=== PATIENT | male | born 1990 | race Caucasian/White ===

== ENCOUNTER 2021-09-24 17:20 | Observation (INO) | payer OTHER ==
[2021-09-24] MEDS ORDERED: ASPIRIN 81 MG PO STA (17:57)
--- NOTE | 2021-09-24 18:03 | ED ---
Chest Pain HPI - General Chief Complaint: Chest Pain Stated Complaint: Chest Pain and Pressure, Palpitations Time Seen by Provider: 09/24/21 17:49 Source: patient Mode of arrival: ambulatory Limitations: no limitations - History of Present Illness Initial Comments: This 31-year-old male presents with a complaint of some chest pain. He states that he has had this intermittently for the last 1 year. It is sometimes worse when he takes a deep breath. He states that it is sometimes worse when he is lifting heavy objects at work. He has not had it checked out in the last 1 year. He denies any shortness of breath. There is no leg pain or swelling. He denies any history of previous known cardiac disease. He also denies any history of DVT or PE. He states that it feels like a heaviness at times on his chest. He complains of occasional palpitations as well as. He does relate that he has a family history of cardiac disease but is unsure of the details. No other complaints or modifying factors. The patient does present from the rehab facility. He states that he previously was on methadone and stopped taking this and bridged himself with heroin and Xanax. He just got into the rehab program today for rehabilitation off of Xanax and heroin. The facility recommended that he come to the ER for further evaluation of his year long chest pain. - Related Data Previous Rx's Medication Instructions Recorded Cyclobenzaprine [Flexeril] 10 mg PO TID #20 tab 01/31/15 Ibuprofen [Motrin] 800 mg PO Q6HR PRN #20 tab 01/31/15 Allergies Allergy/AdvReac Type Severity Reaction Status Date / Time No Known Allergies Allergy Verified 09/24/21 17:25 Review of Systems ROS Statement: Those systems with pertinent positive or pertinent negative responses have been documented in the HPI. ROS Other: All systems not noted in ROS Statement are negative. Past Medical History Past Medical History: No Reported History History of Any Multi-Drug Resistant Organisms: None Reported Past Surgical History: Tonsillectomy Past Psychological History: Anxiety Smoking Status: Current every day smoker Past Alcohol Use History: None Reported Past Drug Use History: Heroin, Opiates, Prescription Drug Abuse General Exam - General Exam Comments Initial Comments: GENERAL: The patient is well nourished and well hydrated. VITAL SIGNS: Heart rate, blood pressure, respiratory rate reviewed as recorded in nurse's notes. EYES: Pupils are round and reactive. Extraocular movements are intact. No conjunctival / lid redness or swelling. ENT: No external evidence of injury, swelling, or ecchymosis. Airway is patent. Throat is clear. NECK: Nontender. No swelling or evidence of injury. No subcutaneous emphysema. Trachea is midline. No thyroid mass. HEART: Regular rate and rhythm. Good peripheral pulses. LUNGS/CHEST: Breath sounds clear and equal bilaterally. No rales, rhonchi, or wheezes. No ecchymosis, subcutaneous emphysema, or tenderness. ABDOMEN: Abdomen soft without tenderness. No palpable masses or organomegaly. No peritoneal signs. No abdominal wall swelling or ecchymosis. EXTREMITIES: No extremity tenderness. Normal muscle tone and function. No thoracolumbar tenderness. NEUROLOGIC: Sensation is grossly intact. Cranial nerve exam reveals face is symmetrical, tongue is midline, speech is clear. SKIN: No abrasions or ecchymosis is noted. No induration or masses noted. PSYCHIATRIC: Alert and oriented. Appropriate behavior and judgment. 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 All diagnostics are reviewed. The EKG shows a normal sinus rhythm at a rate of 62. There may be some slight diffuse ST elevation likely related to early repolarization. The NJ intervals 129, QRS duration is 93, and the QTc interval is 398. He is given aspirin. The laboratory came back essentially within normal limits except for his troponin is slightly elevated. The possibility of a non-ST elevation myocardial infarction is possible. He is started on aspirin as well as Nitropaste. Chest x-ray does not show any acute process. Patient is not having any chest pain noted on recheck. Repeat EKG is ordered. It is felt as though the patient would require admission to the hospital for further evaluation and treatment. He is agreeable with this plan. Case is discussed with advanced practice provider for [facility] [place] [facility] and they're agreeable with admission. Repeat EKG came back showing sinus bradycardia at a rate of 58. There is mild diffuse ST elevation without reciprocal changes likely secondary to early repolarization. The NJ intervals 137, QRS duration is 90, and the QTC intervals 409. Disposition Clinical Impression: Chest pain, Heroin abuse, Xanax use disorder, moderate, Elevated troponin, NSTEMI (non-ST elevated myocardial infarction) Disposition: ADMITTED IP TO THIS HOSP Condition: Fair Is patient prescribed a controlled substance at d/c from ED?: No Referrals: None,Stated [Primary Care Provider] - 1-2 days Time of Disposition: 19:32 Decision Date: 09/24/21 Decision Time: 19:32
[2021-09-24 18:28] LABS: Basophils # (A) 0.1 k/uL (0-0.2); Basophils % (A) 1 %; Eosinophils # (A) 0.4 k/uL (0-0.7); Eosinophils % (A) 3 %; HCT 43.6 % (39.0-53.0); HGB 13.8 gm/dL (13.0-17.5); Lymphocytes # (A) 2.6 k/uL (1.0-4.8); Lymphocytes % (A) 23 %; MCH 27.7 pg (25.0-35.0); MCHC 31.6 g/dL (31.0-37.0); MCV 87.5 fL (80.0-100.0); Monocytes # (A) 0.7 k/uL (0-1.0); Monocytes % (A) 6 %; Neutrophils # (A) 7.5 k/uL (1.3-7.7); Neutrophils % (A) 65 %; Platelet Count 327 k/uL (150-450); RBC 4.98 m/uL (4.30-5.90); RDW 12.8 % (11.5-15.5); WBC 11.5 k/uL (3.8-10.6)
[2021-09-24 18:35] LABS: ALT 23 U/L (4-49); AST 32 U/L (17-59); African American GFR (CKD) >90 (>60 ml/min/1.73 sqM); Albumin 3.7 g/dL (3.5-5.0); Alkaline Phosphatase 58 U/L (38-126); Anion Gap 8 mmol/L; Blood Urea Nitrogen 9 mg/dL (9-20); Calcium 8.5 mg/dL (8.4-10.2); Carbon Dioxide 27 mmol/L (22-30); Chloride 104 mmol/L (98-107); Glucose 84 mg/dL (74-99); Magnesium 2.1 mg/dL (1.6-2.3); Non-African American GFR(CKD) >90 (>60 ml/min/1.73 sqM); Potassium 4.1 mmol/L (3.5-5.1); Sodium 139 mmol/L (137-145); Total Bilirubin 0.5 mg/dL (0.2-1.3); Total Protein 6.5 g/dL (6.3-8.2)
--- NOTE | 2021-09-24 19:20 | XR ---
EXAMINATION TYPE: XR chest 2V DATE OF EXAM: 09/24/2021 6:47 PM COMPARISON: None TECHNIQUE: XR chest 2V Frontal and lateral views of the chest. CLINICAL INDICATION:Male, 31 years old with history of Chest Pain; FINDINGS: Lungs/Pleura: There is no evidence of pleural effusion, focal consolidation, or pneumothorax. Pulmonary vascularity: Unremarkable. Heart/mediastinum: Cardiomediastinal silhouette is unremarkable. Musculoskeletal: No acute osseous pathology. IMPRESSION: No acute cardiopulmonary disease/process.
[2021-09-24] MEDS ORDERED: NITROGLYCERIN OINT 1 INCH/GM PACKET TOPICAL STA (19:34)
[2021-09-24] MEDS ORDERED: NITROGLYCERIN SL TABS 0.4 MG TAB SUBLINGUAL PRN (19:37)
[2021-09-24] MEDS ORDERED: ACETAMINOPHEN TAB 325 MG TAB PO PRN (19:37)
[2021-09-24] MEDS ORDERED: ENOXAPARIN 40 MG/0.4 ML SYRINGE SQ SCH (20:00)
[2021-09-24] MEDS: HEPARIN SOD,PORK IN 0.45% NACL 25,000 UNIT in 0.45% NACL 1 250ML.BAG IV SCH (22:58)
[2021-09-24] MEDS: NITROGLYCERIN OINT 1 INCH/GM PACKET TOPICAL SCH (23:07)
[2021-09-24] MEDS: NICOTINE 21MG/24HR PATCH TRANSDERM SCH (23:35)
[2021-09-25 00:43] LABS: Amphetamine Screen,Urine Not Detected (NotDetected); Barbiturate Screen,Urine Not Detected (NotDetected); Benzodiazepines Screen,Urine Detected (NotDetected); Cocaine Screen,Urine Not Detected (NotDetected); Methadone Screen, Urine Not Detected (NotDetected); Opiate Screen,Urine Detected (NotDetected); Oxycodone Screen, Urine Not Detected (NotDetected); Phencyclidine Screen,Urine Not Detected (NotDetected); Tricyclic Antidepressant,Urine Not Detected (NotDetected); Urn Cannabinoid Scrn Detected (NotDetected)
[2021-09-25 01:06] LABS: Partial Thromboplastin Time 43.8 sec (22.0-30.0); Prothrombin Time 10.5 sec (9.0-12.0)
[2021-09-25] MEDS: NITROGLYCERIN OINT 1 INCH/GM PACKET TOPICAL SCH (05:58)
[2021-09-25] MEDS ORDERED: ONDANSETRON 4 MG/2 ML VIAL IVP PRN (08:31)
[2021-09-25] MEDS ORDERED: ASPIRIN 325 MG TAB PO SCH (09:00)
[2021-09-25] MEDS: CLOPIDOGREL 75 MG TAB PO SCH (09:02)
[2021-09-25] MEDS: METOPROLOL TARTRATE 12.5 MG TAB PO SCH ×2 (09:02→21:02)
[2021-09-25] MEDS: ASPIRIN 81 MG PO SCH (09:02)
[2021-09-25 09:42] LABS: HDL Cholesterol 38.1 mg/dL (40.00-60.00); Triglycerides 49.3 mg/dL (0.00-149.00)
[2021-09-25 09:56] LABS: Chol/HDL Ratio 2.32 Ratio; LDL Cholesterol,Direct Reflex 40.7 mg/dL (0.00-129.00)
[2021-09-25 11:06] VITALS: BMI 21.4
--- NOTE | 2021-09-25 11:41 | P.CRDCN ---
History of Present Illness History of present illness: HISTORY OF PRESENTING ILLNESS This is a pleasant 31-year-old male past medical history significant for polysubstance abuse with IV heroin, marijuana, persistent drug use, opiates, chronic nicotine dependence. 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 We have been asked to see in consultation for chest pain. Patient presents to the emergency department from [place] after telling staff that he had chest pain. He states that he was previously on methadone stopped taking this and was using IV heroin and Xanax. He states he got into a rehab program for his substance abuse. He states he been having intermittent chest pressure, describes it as someone sitting on his chest. Also occasionally sharp. It is nonradiating. It comes and goes. He states when he stopped using IV heroin his chest pain returned. No specific aggravating factors. He also was nausea, diaphoretic. He currently smokes 1PPD, denies alcohol use. He denies history of CAD, AL, stroke, diabetes, hypertension. Family history includes his sister of congestive heart failure at the age of 13, his mother of an AL in her 50s, mother also with history of illicit drug abuse. DIAGNOSTICS EKG reveals sinus bradycardia, heart rate 58, early repolarization in inferior and anterior lateral leads. No acute ischemia noted. No prior EKG to compare. Telemetry tracings indicate sinus mechanism Chest xray no acute cardiopulmonary process. Laboratory reviewed, troponin 0.45, 0.29, 0.21, WBC 11.5, hemoglobin 13.8, platelets 327, d-dimer negative, sodium 139, potassium 4.1, BUN 9, serum crit 2 .5, urine tox positive for opiates, benzodiazepines, marijuana Current home medications include none REVIEW OF SYSTEMS At the time of my exam: CONSTITUTIONAL: Denies fever or chills. CARDIOVASCULAR: + chest pain, Denies shortness of breath, orthopnea, PND or palpitations. RESPIRATORY: Denies cough. GASTROINTESTINAL: Denies abdominal pain, diarrhea, constipation, nausea or vomiting. MUSCULOSKELETAL: Denies myalgias. NEUROLOGIC: Denies numbness, tingling, headache or weakness. ENDOCRINE: Denies fatigue, weight change, polydipsia or polyurina. GENITOURINARY: Denies burning, hematuria or urgency with micturation. HEMATOLOGIC: Denies history of anemia or bleeding. PHYSICAL EXAMINATION Blood pressure 111/64, heart rate 72, afebrile, oxygen saturation is 96% on room air CONSTITUTIONAL: No apparent distress. HEENT: Head is normocephalic. Pupils are equal, round. Sclerae anicteric. Mucous membranes of the mouth are moist. No JVD. No carotid bruit. CHEST EXAMINATION: Lungs are clear to auscultation. No chest wall tenderness is noted on palpation or with deep breathing. HEART EXAMINATION: Regular rate and rhythm. S1, S2 heard. No murmurs, gallops or rub. ABDOMEN: Soft, nontender. Positive bowel sounds. EXTREMITIES: 2+ peripheral pulses, no lower extremity edema and no calf tenderness. SKIN: moist, warm NEUROLOGIC EXAMINATION: Patient is awake, alert and oriented x3. ASSESSMENT Chest pain and elevated troponin concerning for NSTEMI Polysubstance abuse with IV heroin, prescription drug abuse, opiates Chronic nicotine dependence PLAN We recommend cardiac catheterization at this time, patient has refused. We have discussed the risks, benefits and alternative therapies for the cardiac catheterization. Patient has refused Obtain 2D echocardiogram and doppler study to assess cardiac structure and function. Check lipid panel Due to patient's refusal we will treat medically with IV heparin, aspirin, Plavix, Nitro and metoprolol tartrate Smoking cessation discussed and highly recommended. Further recommendations based on clinical course Thank you kindly for this consultation. Nurse practitioner note has been reviewed by physician. Signing provider agrees with the documented findings, assessment, and plan of care. Past Medical History Past Medical History: No Reported History History of Any Multi-Drug Resistant Organisms: None Reported Past Surgical History: Tonsillectomy Past Anesthesia/Blood Transfusion Reactions: No Reported Reaction Past Psychological History: Anxiety Smoking Status: Current every day smoker Past Alcohol Use History: None Reported Past Drug Use History: Heroin, Marijuana, Opiates, Prescription Drug Abuse Additional Drug Use History / Comment(s): PT USES IV HEROIN AND TAKES METHADONE. - Past Family History Mother Family Medical History: Myocardial Infarction (AL) Sister(s) Family Medical History: Congestive Heart Failure (CHF) Medications and Allergies Home Medications Medication Instructions Recorded Confirmed Type No Known Home Medications 09/24/21 09/24/21 History Allergies Allergy/AdvReac Type Severity Reaction Status Date / Time No Known Allergies Allergy Verified 09/24/21 20:20 Physical Exam Vitals: Vital Signs Temp Pulse Pulse Resp BP BP Pulse Ox 09/25/21 04:00 98.0 F 71 18 99/54 96 09/25/21 02:00 72 17 09/25/21 00:00 98.6 F 72 17 111/64 97 09/24/21 20:00 60 16 104/70 99 09/24/21 19:27 98.4 F 61 18 114/86 100 09/24/21 18:12 62 18 121/67 100 09/24/21 17:55 64 09/24/21 17:22 98 F 70 20 115/80 100 Intake and Output 09/24/21 09/25/21 09/25/21 22:59 06:59 14:59 Intake Total 64 Output Total 0 300 Balance 0 -236 Intake: Intake, IV Titration 64 Amount Heparin Sod,Pork in 0.45% 64 NaCl 25,000 unit In 0.45 % NaCl 1 250ml.bag @ 12 UNITS/KG/HR 8.382 mls/hr IV .Q24H [facility] Rx#: [id number] Output: Urine 0 300 Other: # Voids 0 1 Weight 69.853 kg Results 09/24/21 18:09 09/24/21 18:09 Cardiac Enzymes 09/24/21 09/24/21 09/24/21 Range/Units 18:09 18:09 22:00 AST 32 (17-59) U/L Troponin I 0.451 H* 0.294 H* (0.000-0.034) ng/mL 09/25/21 Range/Units 00:17 AST (17-59) U/L Troponin I 0.211 H* (0.000-0.034) ng/mL Coagulation 09/25/21 09/25/21 Range/Units 00:17 06:20 PT 10.5 (9.0-12.0) sec APTT 43.8 H 39.1 H (22.0-30.0) sec CBC 09/24/21 Range/Units 18:09 WBC 11.5 H (3.8-10.6) k/uL RBC 4.98 (4.30-5.90) m/uL Hgb 13.8 (13.0-17.5) gm/dL Hct 43.6 (39.0-53.0) % Plt Count 327 (150-450) k/uL Comprehensive Metabolic Panel 05/03/22 Range/Units 18:09 Sodium 139 (137-145) mmol/L Potassium 4.1 (3.5-5.1) mmol/L Chloride 104 (98-107) mmol/L Carbon Dioxide 27 (22-30) mmol/L BUN 9 (9-20) mg/dL Creatinine 0.54 L (0.66-1.25) mg/dL Glucose 84 (74-99) mg/dL Calcium 8.5 (8.4-10.2) mg/dL AST 32 (17-59) U/L ALT 23 (4-49) U/L Alkaline Phosphatase 58 (38-126) U/L Total Protein 6.5 (6.3-8.2) g/dL Albumin 3.7 (3.5-5.0) g/dL Current Medications Generic Name Dose Route Start Last Admin Trade Name Freq PRN Reason Stop Dose Admin Acetaminophen 650 mg 09/24/21 19:37 09/25/21 05:56 Acetaminophen Tab 325 Mg Tab PO 650 mg Q4HR PRN Administration Pain Aspirin 325 mg 09/25/21 09:00 Aspirin 325 Mg Tab PO DAILY WENDI Heparin Sodium/Sodium Chloride 250 mls @ 8.382 mls/hr 09/24/21 22:00 09/24/21 22:58 25,000 unit/ Sodium Chloride IV 12 units/kg/hr .Q24H WENDI 8.382 mls/hr Administration Protocol 12 UNITS/KG/HR Nicotine 1 patch 09/24/21 23:30 09/24/21 23:35 Nicotine 21mg/24hr Patch TRANSDERM 1 patch DAILY WENDI Administration Nitroglycerin 0.4 mg 09/24/21 19:37 Nitroglycerin Sl Tabs 0.4 Mg Tab SUBLINGUAL Q5M PRN Chest Pain Nitroglycerin 1 inch 09/25/21 00:00 09/25/21 05:58 Nitroglycerin Oint 1 Inch/Gm Packet TOPICAL Not Given Q6HR WENDI Intake and Output 09/24/21 09/25/21 09/25/21 22:59 06:59 14:59 Intake Total 64 Output Total 0 300 Balance 0 -236 Intake: Intake, IV Titration 64 Amount Heparin Sod,Pork in 0.45% 64 NaCl 25,000 unit In 0.45 % NaCl 1 250ml.bag @ 12 UNITS/KG/HR 8.382 mls/hr IV .Q24H [facility] Rx#: [id number] Output: Urine 0 300 Other: # Voids 0 1 Weight 69.853 kg 09/24/21 18:09 09/24/21 18:09
--- NOTE | 2021-09-25 11:43 | CA ---
Transthoracic Echo Report Name: Raymon Epstein Age: 31 Gender: M : 1990 Exam Date: 09/25/2021 09:03 Exam Location: [place] [facility] Ht (in): 71 Wt (lb): 154 Ordering Physician: Vasile Justice DO Attending/Referring Phys: [id number], Reshma Patient Flow Coordinator Chela Lazo, [facility] Procedure CPT: Indications: CP Cardiac Hx: Technical Quality: Fair Contrast 1: Total Dose (mL): Contrast 2: Total Dose (mL): MEASUREMENTS (Male / Female) Normal Values 2D ECHO LV Diastolic Diameter PLAX 5.2 cm 4.2 - 5.9 / 3.9 - 5.3 cm LV Systolic Diameter PLAX 3.4 cm IVS Diastolic Thickness 1.2 cm 0.6 - 1.0 / 0.6 - 0.9 cm LVPW Diastolic Thickness 0.9 cm 0.6 - 1.0 / 0.6 - 0.9 cm LV Relative Wall Thickness 0.4 RV Internal Dim ED PLAX 3.8 cm LA Volume 83.8 cm??? 18 - 58 / 22 - 52 cm??? M-MODE Aortic Root Diameter MM 3.2 cm LA Systolic Diameter MM 3.7 cm LA Ao Ratio MM 1.2 AV Cusp Separation MM 2.3 cm DOPPLER AV Peak Velocity 106.5 cm/s AV Peak Gradient 4.5 mmHg LVOT Peak Velocity 103.6 cm/s LVOT Peak Gradient 4.3 mmHg MV Area PHT 2.6 cm??? Mitral E Point Velocity 88.2 cm/s Mitral A Point Velocity 69.9 cm/s Mitral E to A Ratio 1.3 MV Deceleration Time 297.4 ms TR Peak Velocity 248.2 cm/s TR Peak Gradient 24.6 mmHg Right Ventricular Systolic Press 29.6 mmHg FINDINGS Left Ventricle Normal left ventricular systolic function with no obvious regional wall motion abnormalities. Normal left ventricular diastolic filling pattern. Left ventricular cavity size normal. Mildly increased left ventricular wall thickness. Left ventricular ejection fraction is estimated at 55-60 %. Right Ventricle Mild right ventricular dilatation. Right ventricular systolic pressure within normal limits. Right Atrium Mild right atrial dilatation. Left Atrium Moderate left atrial dilatation. Mitral Valve Structurally normal mitral valve. No mitral stenosis, regurgitation or prolapse. Mild mitral regurgitation. Aortic Valve Trileaflet aortic valve. No aortic valve stenosis or regurgitation. Tricuspid Valve Structurally normal tricuspid valve. No evidence of pulmonary hypertension. Pulmonic Valve Structurally normal pulmonic valve. No pulmonic regurgitation. Pericardium No pericardial effusion. Aorta Aortic root and proximal ascending aorta not well visualized. CONCLUSIONS Preserved LV systolic function Left ventricular hypertrophy Previewed by: Dr. Masood Abreu MD (Electronically Signed) Final Date: 25 Sep 2021 11:42
[2021-09-25] MEDS ORDERED: hydrOXYzine pamoate 25 MG CAP PO PRN (11:58)
[2021-09-25] MEDS ORDERED: LOPERAMIDE 2 MG CAP PO PRN (12:00)
[2021-09-25] MEDS ORDERED: PROCHLORPERAZINE 5 MG TAB PO PRN (12:00)
--- NOTE | 2021-09-25 12:43 | P.HPIM ---
History of Present Illness This is a pleasant 51 years old male with past medical history of,Anxiety, Current every day smokerdrug abuse including Heroin, Marijuana, Opiates, Prescription Drug Abuse Patient states that is been using methadone 180 mg daily for 6 years where he follows up with [facility]. Over last month he wanted to taper down his methadone and when he was going down with the dose in 2030-40 mg he will develop withdrawal symptoms so anesthetic he was started using injectable heroin twice a day before going to work. And at evening. Also has been using 4 mg at night to help him sleep. The last dose was 2 days ago. Patient states he went to [place] just because he got tired of being on medication and he wants to undergo detox. There he was complaining of from chest pain which he was referred for to the emergency room. Patient is been complaining for this chest pain on and off for 1 year. This chest pain was getting more severe lately over the last 2 months when he has several deaths in his family bring him stress to him so he started using more medication and he was having worsening chest pain following that. His chest pain mainly on the left lower side of his chest anteriorly, nonradiating, about 5/10 on admission and currently 3/10. [place] like pressure and sometimes sharp with coughing and deep breath. However patient denies any chest pain or dyspnea. No diarrhea or vomiting or urinary complaints. However his been vomited once today because from his withdrawal symptoms. Currently he is been having few withdrawal symptoms although his calm Not anxious not agitated but he's feeling cold and hot flashes, generalized body ache, restless leg especially at night and nausea patient denies suicidal, homicidal ideation. He denies hallucination he smokes cigars as well Vitals are stable. Labs showed mild leukocytosis of 11.5. Rest of CBC, BMP, liver enzymes are unremarkable. Troponin is elevated 0.4 and 0.2 EKG showing normal sinus rhythm at [address] on V4 to V6. No other significant ST-T changes. QTC 398. Chest x-ray: No acute process. in emergency room patient received aspirin, nitroglycerin and heparin drip. MAPS was checked and no results were found Review of Systems Review of systems CONSTITUTIONAL: No fever, no malaise, no fatigue. HEENT: No recent visual problems or hearing problems. Denied any sore throat. CARDIOVASCULAR: No orthopnea, PND, no palpitations, no syncope. PULMONARY: No shortness of breath, no cough, no hemoptysis. GASTROINTESTINAL: No diarrhea, no nausea, no vomiting, no abdominal pain. Normoactive bowel sounds. NEUROLOGICAL: No headaches, no weakness, no numbness. HEMATOLOGICAL: Denies any bleeding or petechiae. GENITOURINARY: Denies any burning micturition, frequency, or urgency. MUSCULOSKELETAL/RHEUMATOLOGICAL: Denies any joint pain, swelling, or any muscle pain. ENDOCRINE: Denies any polyuria or polydipsia. Past Medical History Past Medical History: No Reported History History of Any Multi-Drug Resistant Organisms: None Reported Past Surgical History: Tonsillectomy Past Anesthesia/Blood Transfusion Reactions: No Reported Reaction Past Psychological History: Anxiety Smoking Status: Current every day smoker Past Alcohol Use History: None Reported Past Drug Use History: Heroin, Marijuana, Opiates, Prescription Drug Abuse Additional Drug Use History / Comment(s): PT USES IV HEROIN AND TAKES METHADONE. - Past Family History Mother Family Medical History: Myocardial Infarction ([place]) Sister(s) Family Medical History: Congestive Heart Failure (CHF) Medications and Allergies Home Medications Medication Instructions Recorded Confirmed Type No Known Home Medications 09/24/21 09/24/21 History Allergies Allergy/AdvReac Type Severity Reaction Status Date / Time No Known Allergies Allergy Verified 09/24/21 20:20 Physical Exam Vitals: Vital Signs Temp Pulse Pulse Resp BP BP Pulse Ox 09/25/21 04:00 98.0 F 71 18 99/54 96 09/25/21 02:00 72 17 09/25/21 00:00 98.6 F 72 17 111/64 97 09/24/21 20:00 60 16 104/70 99 09/24/21 19:27 98.4 F 61 18 114/86 100 09/24/21 18:12 62 18 121/67 100 09/24/21 17:55 64 09/24/21 17:22 98 F 70 20 115/80 100 Intake and Output 09/24/21 09/25/21 09/25/21 22:59 06:59 14:59 Intake Total 64 Output Total 0 300 Balance 0 -236 Intake: Intake, IV Titration 64 Amount Heparin Sod,Pork in 0.45% 64 NaCl 25,000 unit In 0.45 % NaCl 1 250ml.bag @ 12 UNITS/KG/HR 8.382 mls/hr IV .Q24H [facility] Rx#: [id number] Output: Urine 0 300 Other: # Voids 0 1 Weight 69.853 kg GENERAL: The patient is alert and oriented x3, not in any acute distress. Well developed, well nourished. HEENT: Pupils are round and equally reacting to light. EOMI. No scleral icterus. No conjunctival pallor. Normocephalic, atraumatic. No pharyngeal erythema. No thyromegaly. CARDIOVASCULAR: S1 and S2 present. No murmurs, rubs, or gallops. PULMONARY: Chest is clear to auscultation, no wheezing or crackles. ABDOMEN: Soft, nontender, nondistended, normoactive bowel sounds. No palpable organomegaly. MUSCULOSKELETAL: No joint swelling or deformity. EXTREMITIES: No cyanosis, clubbing, or pedal edema. NEUROLOGICAL: Gross neurological examination did not reveal any focal deficits. SKIN: No rashes. no petechiae. Results CBC & Chem 7: 09/24/21 18:09 09/24/21 18:09 Labs: Abnormal Lab Results - Last 24 Hours (Table) 09/24/21 09/24/21 09/24/21 Range/Units 18:09 18:09 18:09 WBC 11.5 H (3.8-10.6) k/uL APTT (22.0-30.0) sec Creatinine 0.54 L (0.66-1.25) mg/dL Troponin I 0.451 H* (0.000-0.034) ng/mL Urine Opiates Screen (NotDetected) U Benzodiazepines Scrn (NotDetected) U Marijuana (THC) Screen (NotDetected) 09/24/21 09/25/21 09/25/21 Range/Units 22:00 00:07 00:17 WBC (3.8-10.6) k/uL APTT 43.8 H (22.0-30.0) sec Creatinine (0.66-1.25) mg/dL Troponin I 0.294 H* (0.000-0.034) ng/mL Urine Opiates Screen Detected H (NotDetected) U Benzodiazepines Scrn Detected H (NotDetected) U Marijuana (THC) Screen Detected H (NotDetected) 09/25/21 09/25/21 Range/Units 00:17 06:20 WBC (3.8-10.6) k/uL APTT 39.1 H (22.0-30.0) sec Creatinine (0.66-1.25) mg/dL Troponin I 0.211 H* (0.000-0.034) ng/mL Urine Opiates Screen (NotDetected) U Benzodiazepines Scrn (NotDetected) U Marijuana (THC) Screen (NotDetected) Thrombosis Risk Factor Assmnt - Choose All That Apply Any of the Below Risk Factors Present?: No Assessment and Plan Assessment: Chest pain, possible non-STEMI. Nonadherence recommended medical treatment Nicotine dependence Drug abuse including heroin, marijuana, opium, prescription drug, methadone. Plan: This is a pleasant 31 years old male who presents with chest pain with recent history of drug abuse. Continue with aspirin and heparin drip Check echocardiogram Cardiology consult, recommend medical treatment as patient has been refusing cardiac cath Start symptomatic treatment with hydroxyzine, all in all, Imodium and prochlorperazine, Requip. Psychiatric team consult Based upon my evaluation, patient has capacity to make medical decision Labs and medication were reviewed.. Continue same treatment. Continue with symptomatic treatment. Resume home medication. Monitor lytes and vitals. DVT and GI prophylaxis. Further recommendations as per clinical course of the patient DVT prophylaxis: heparin GI Prophylaxis: Pepcid Prognosis is guarded
[2021-09-25] MEDS ORDERED: diazePAM 5 MG TAB PO STA (14:09)
--- NOTE | 2021-09-25 14:42 | P.CN ---
Psychiatric Consult - . Consult date: 09/25/21 Consult:: 09/25/21 14:41 IDENTIFYING DATA: This patient is a single, 31-year-old male with a significant history of polysubstance abuse presenting to the hospital for chest pain. HISTORY OF PRESENT ILLNESS: The patient presented to the hospital on 09/24/2021, brought into the hospital with a complaint of chest pain. Reportedly, the patient has been having intermittent chest pain for the last year. He also has reported history of palpitations. The patient was planning to go to rehab at [facility] and was scheduled for an intake today however came to the hospital due to concerns for chest pain. Psychiatry has been consulted for evaluation of depression and polysubstance abuse. Upon evaluation on the medical floor, the patient is currently denying any significant symptoms of depression at this time. He is not reporting any suicidal or homicidal ideation, intention, and/or plan. He is denying any auditory or visual hallucinations. He reports no paranoia or other delusions. The patient states that he was supposed to go to rehab and continues to desire to go to rehab after this hospitalization. He reports that he would like to see psychiatrist after his rehab stay so that he may be put on medications to help with insomnia and with anxiety. The patient remains fixated on receiving benzodiazepine medications. In regards to substance abuse, the patient reports his use of different drugs including methadone, Xanax, and heroin. He reports that he last used methadone approximately 12 days ago, Xanax 4 days ago, and heroin IV approximately 26 hours ago. He is currently reporting that he is expressing withdrawal symptoms in the forms of nausea, generalized pain, elevated anxiety, yawning, and "stretchies." The patient is not reporting any significant symptoms of auditory or visual hallucinations. He denies any overt manic symptoms. PAST PSYCHIATRIC HISTORY: Patient has a history of anxiety and polysubstance abuse. The patient does report that he uses Xanax illicitly. Patient denies any previous psychiatric hospitalizations. Patient denies any psychiatric outpatient follow-up. Patient denies any history of suicide attempts in the past. PAST MEDICAL HISTORY: Past Medical History: No Reported History History of Any Multi-Drug Resistant Organisms: None Reported Past Surgical History: Tonsillectomy Past Anesthesia/Blood Transfusion Reactions: No Reported Reaction Past Psychological History: Anxiety Smoking Status: Current every day smoker Past Alcohol Use History: None Reported Past Drug Use History: Heroin, Marijuana, Opiates, Prescription Drug Abuse Additional Drug Use History / Comment(s): PT USES IV HEROIN AND TAKES METHADONE. ALLERGIES: NO KNOWN DRUG ALLERGIES CHEMICAL DEPENDENCY HISTORY: as per HPI. The patient has been abusing drugs since the age of 17. He reports that his mother and father abused opiates and he got started I taking some of their methadone. He reports of the longest period he has been sober was for 4 years but relapsed approximately one year ago after his grandfather . He states that he remained sober for his daughter. FAMILY PSYCHIATRIC/SUBSTANCE USE HISTORY: The patient reports that his mother and stepfather were opiate addicts. SOCIAL HISTORY: The patient is single, has a daughter. MENTAL STATUS EXAM: General Appearance: Patient appears to be stated age is alert, pleasant, and co operative. Patient appears to have fair hygiene and grooming wearing hospital gown with fair eye contact. Multiple tattoos. Behavior: Patient is calmly lying in bed without any agitated behavior. Speech: Patient's speech is fluent and nonpressured. Mood/Affect: Patient reports their mood is "okay, just in withdrawal", affect is euthymic with appropriate range. Suicidality/Homicidality: Patient denies any suicidal or homicidal ideation. Perceptions: Patient denies any visual hallucinations and denies any auditory hallucinations Though content/process: There is no evidence of any delusional thought content and thought process is linear and goal-directed. Memory and concentration: AOX3, grossly intact for the purposes of this session. Can spell "WORLD" backwards Judgment and insight: Fair IMPRESSIONS: Polysubstance abuse Prescription drug abuse Opiate use disorder Benzodiazepine use disorder PLAN: -At this time patient DOES NOT meet criteria for inpatient psychiatric admission. Patient is not presenting with imminent risk of harm to self or others. He'll remain at chronic elevated risk due to his substance abuse, in particular his opiate and his benzodiazepine abuse. The patient was counseled at great length that the combination of his drugs of choice would lead to respiratory depression and likely . He expresses a desire to live for himself and his daughter. He is future-oriented. -Would recommend the following medication changes/additions: No medication recommendations made at this time. -Agree with plan for the patient to go to inpatient substance abuse rehabilitation. -Psychiatry will sign off at this point, please contact with any questions. 09/25/21 14:41
[2021-09-25] MEDS: NICOTINE 21MG/24HR PATCH TRANSDERM SCH ×2 (14:58→15:26)
[2021-09-25] MEDS: SODIUM CHLORIDE 0.9% 1,000 ML IV SCH ×2 (15:26→21:02)
[2021-09-25] MEDS ORDERED: diazePAM 5 MG TAB PO PRN (18:39)
[2021-09-25] MEDS: cloNIDine HCL 0.1 MG TAB PO SCH (21:02)
[2021-09-25] MEDS: hydrOXYzine pamoate 25 MG CAP PO PRN (21:02)
[2021-09-25] MEDS: HEPARIN SOD,PORK IN 0.45% NACL 25,000 UNIT in 0.45% NACL 1 250ML.BAG IV SCH (21:03)
[2021-09-26] MEDS: hydrOXYzine pamoate 25 MG CAP PO PRN ×2 (03:31→08:37)
[2021-09-26] MEDS: SODIUM CHLORIDE 0.9% 1,000 ML IV SCH ×2 (03:32→12:40)
[2021-09-26 04:06] LABS: Basophils # (A) 0.1 k/uL (0-0.2); Basophils % (A) 1 %; Eosinophils # (A) 0.4 k/uL (0-0.7); Eosinophils % (A) 6 %; HCT 37.5 % (39.0-53.0); HGB 11.7 gm/dL (13.0-17.5); Lymphocytes # (A) 2.4 k/uL (1.0-4.8); Lymphocytes % (A) 37 %; MCH 27.6 pg (25.0-35.0); MCHC 31.3 g/dL (31.0-37.0); MCV 88.2 fL (80.0-100.0); Mean Platelet Volume 7.2; Monocytes # (A) 0.3 k/uL (0-1.0); Monocytes % (A) 5 %; Neutrophils # (A) 3.1 k/uL (1.3-7.7); Neutrophils % (A) 47 %; Platelet Count 264 k/uL (150-450); RBC 4.25 m/uL (4.30-5.90); RDW 12.9 % (11.5-15.5); WBC 6.5 k/uL (3.8-10.6)
[2021-09-26 04:27] LABS: African American GFR (CKD) >90 (>60 ml/min/1.73 sqM); Anion Gap 4 mmol/L; Blood Urea Nitrogen 7 mg/dL (9-20); Calcium 8.3 mg/dL (8.4-10.2); Carbon Dioxide 27 mmol/L (22-30); Chloride 109 mmol/L (98-107); Glucose 104 mg/dL (74-99); Non-African American GFR(CKD) >90 (>60 ml/min/1.73 sqM); Potassium 3.7 mmol/L (3.5-5.1); Sodium 140 mmol/L (137-145)
[2021-09-26] MEDS: ASPIRIN 81 MG PO SCH (08:37)
[2021-09-26] MEDS: cloNIDine HCL 0.1 MG TAB PO SCH (08:37)
[2021-09-26] MEDS: METOPROLOL TARTRATE 12.5 MG TAB PO SCH (08:37)
[2021-09-26] MEDS: CLOPIDOGREL 75 MG TAB PO SCH (08:37)
[2021-09-26 12:37] VITALS: RESP 16; TEMP 97.9
[2021-09-26 12:38] VITALS: BP 116/70; PULSE 62
[2021-09-26] MEDS: NICOTINE 21MG/24HR PATCH TRANSDERM SCH (12:40)
--- NOTE | 2021-09-26 12:40 | P.PN ---
Subjective This is a pleasant 31-year-old male past medical history significant for polysubstance abuse with IV heroin, marijuana, persistent drug use, opiates, chronic nicotine dependence. 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 We have been asked to see in consultation for chest pain. Patient presents to the emergency department from [facility] after telling staff that he had chest pain. He states that he was previously on methadone stopped taking this and was using IV heroin and Xanax. He states he got into a rehab program for his substance abuse. He states he been having intermittent chest pressure, describes it as someone sitting on his chest. Also occasionally sharp. It is nonradiating. It comes and goes. He states when he stopped using IV heroin his chest pain returned. No specific aggravating factors. He also was nausea, diaphoretic. He currently smokes 1PPD, denies alcohol use. He denies history of CAD, MD, stroke, diabetes, hypertension. Family history includes his sister of congestive heart failure at the age of 13, his mother of an MD in her 50s, mother also with history of illicit drug abuse. 09/26/2021 Cardiac catheterization was recommended yesterday, however patient refused. Patient has been been treated medically for acute coronary syndrome. Vital signs are stable. Echocardiogram revealed an EF of 5560%, LVH. PHYSICAL EXAMINATION Vitals reviewed. CONSTITUTIONAL: No apparent distress. HEENT: Head is normocephalic. Pupils are equal, round. Sclerae anicteric. Mucous membranes of the mouth are moist. No JVD. No carotid bruit. CHEST EXAMINATION: Lungs are clear to auscultation. No chest wall tenderness is noted on palpation or with deep breathing. HEART EXAMINATION: Regular rate and rhythm. S1, S2 heard. No murmurs, gallops or rub. ABDOMEN: Soft, nontender. Positive bowel sounds. EXTREMITIES: 2+ peripheral pulses, no lower extremity edema and no calf tenderness. SKIN: moist, warm NEUROLOGIC EXAMINATION: Patient is awake, alert and oriented x3. ASSESSMENT Chest pain and elevated troponin concerning for NSTEMI Polysubstance abuse with IV heroin, prescription drug abuse, opiates Chronic nicotine dependence PLAN We recommend cardiac catheterization at this time, patient has refused. We have discussed the risks, benefits and alternative therapies for the cardiac catheterization. Patient has refused Due to patient's refusal we will treat medically with aspirin, Plavix, metoprolol tartrate Smoking cessation discussed and highly recommended. From cardiology perspective, patient stable to be discharged home. Recommended close follow-up outpatient with Dr. Velazquez Thank you kindly for this consultation. Nurse practitioner note has been reviewed by physician. Signing provider agrees with the documented findings, assessment, and plan of care. Objective - Vital Signs Vital signs: Vital Signs Temp 97.9 F 09/26/21 08:30 Pulse 59 L 09/26/21 08:30 Resp 16 09/26/21 08:30 BP 115/77 09/26/21 08:30 Pulse Ox 99 09/26/21 08:30 Intake & Output 09/25/21 09/26/21 09/26/21 18:59 06:59 18:59 Intake Total 484.473 190.875 Balance 484.473 190.875 Weight 69.853 kg 69.853 kg Intake: Intake, IV Titration 124.473 70.875 Amount Heparin Sod,Pork in 0.45% 124.473 70.875 NaCl 25,000 unit In 0.45 % NaCl 1 250ml.bag @ 12 UNITS/KG/HR 8.382 mls/hr IV .Q24H [facility] Rx#: [id number] Oral 360 120 Other: # Voids 3 1 # Bowel Movements 1 1 - Labs CBC & Chem 7: 09/26/21 03:39 09/26/21 03:39 Labs: Abnormal Lab Results - Last 24 Hours (Table) 09/25/21 09/26/21 09/26/21 Range/Units 21:18 03:39 03:39 RBC 4.25 L (4.30-5.90) m/uL Hgb 11.7 L (13.0-17.5) gm/dL Hct 37.5 L (39.0-53.0) % APTT 38.7 H (22.0-30.0) sec Chloride 109 H (98-107) mmol/L BUN 7 L (9-20) mg/dL Creatinine 0.57 L (0.66-1.25) mg/dL Glucose 104 H (74-99) mg/dL Calcium 8.3 L (8.4-10.2) mg/dL 09/26/21 Range/Units 03:39 RBC (4.30-5.90) m/uL Hgb (13.0-17.5) gm/dL Hct (39.0-53.0) % APTT 55.5 H (22.0-30.0) sec Chloride (98-107) mmol/L BUN (9-20) mg/dL Creatinine (0.66-1.25) mg/dL Glucose (74-99) mg/dL Calcium (8.4-10.2) mg/dL
--- NOTE | 2021-09-30 10:00 | CDI ---
Documentation Clarification Form Date: 09/30/21 From: Debbie Kline Admit Date: 09/24/2021 07:37:00 PM Patient Name: Raymon Epstein Visit Number: [id number] Discharge Date: 09/26/2021 03:14:00 PM ATTENTION: The Clinical Documentation Specialists (CDI) and [facility] Coding Staff appreciate your assistance in clarifying documentation. Please respond to the clarification below the line at the bottom and electronically sign. The CDI & [facility] Coding staff will review the response and follow-up if needed. Please note: Queries are made part of the Legal Health Record. If you have any questions, please contact the author of this message via ITS. Dr. Eladio Velazquez, Your patient has the documented symptom of chest pain in ED Note, H&P and consult. Additional clarification regarding the etiology/cause of this symptom is requested. Patient C/O: This 31-year-old male presents with a complaint of some chest pain. He states that he has had this intermittently for the last 1 year. It is sometimes worse when he takes a deep breath. He states that it is sometimes worse when he is lifting heavy objects at work. History/Risk factors: Heroin abuse, Xanax use disorder, moderate, abuse of marijuana Labs: EKG reveals sinus bradycardia, heart rate 58, early repolarization in inferior and anterior lateral leads. Troponin I: 0.1451, 0.294, 0.211 Treatment: Refused cardiac cath. Due to patient's refusal we will treat medically with aspirin, Plavix, metoprolol tartrate. Please provide additional clarification regarding the etiology/cause of the chest pain. [ ] Chest pain due to NSTEMI [ ] Chest pain due to other condition, please specify [ ] Unable to determine MTDD
--- NOTE | 2021-10-01 23:44 | P.DS ---
Providers Date of admission: 09/24/21 19:37 Attending physician: Alexey Wang Consults: 09/24/21 19:37 Consult Physician Urgent Consulting Provider: Benito Dalton Consult Reason/Comments: cp, elevated trop Do you want consulting provider notified?: Yes 09/25/21 09:15 Consult Physician Routine Consulting Provider: Mike Zayas Consult Reason/Comments: substance abuse, withdrawal Do you want consulting provider notified?: Yes Primary care physician: Stated None Hospital Course: Diagnoses: Chest pain, possible non-STEMI. Nonadherence to recommended medical treatment Nicotine dependence Drug abuse including heroin, marijuana, opium, prescription drug, methadone. Hospital course: This is a pleasant 51 years old male with past medical history of,Anxiety, Current every day smokerdrug abuse including Heroin, Marijuana, Opiates, Prescription Drug Abuse Patient states that is been using methadone 180 mg daily for 6 years where he follows up with [facility]. Over last month he wanted to taper down his methadone and when he was going down with the dose in 2030-40 mg he will develop withdrawal symptoms so anesthetic he was started using injectable heroin twice a day before going to work. And at evening. Also has been using 4 mg at night to help him sleep. The last dose was 2 days prior to admission. Patient states he went to [facility] just because he got tired of being on medication and he wants to undergo detox. There he was complaining of from chest pain which he was referred for to the emergency room.. Patient has been evaluated by point of care technician and started on heparin drip. Cardiac catheterization is recommended by point of care technician however patient declined the test. Patient has capacity to make decisions. Cigar Head Stringer then recommended conservative treatment with aspirin and Plavix and metoprolol, and other medication. Importance of entrance to treatment is explained for the patient extensively and he verbalized understanding and acceptance. Today I discussed the case with point of care technician Dr. Velazquez who cleared him for discharge. Patient himself reports improvement of his chest pain. He denies any other symptoms, no dyspnea. No change in mental status. No fever. He has some simple withdrawal in times which is improving. Patient clinically stable. Patient was cleared for discharge by point of care technician Problems and management plan were discussed with the patient and he verbalized understanding and acceptance Patient was found stable and can be discharged home/rehab in guarded prognosis however he needs follow-up as an outpatient. Patient was instructed to follow up with PCP within one week and patient agrees Patient was instructed to follow up with point of care technician Dr. Velazquez in one week and he agrees to call and make his own appointments Patient intends to back to detox rehab upon discharge at [facility], patient confirmed to me that's where he is going after discharge Physical exam Gen: patient is a AAOx3, no distress CVS: S1-S2, RRR, no murmur Lungs: B/L CTA, no wheezing Abdomen: soft, no distention, no tenderness, positive bowel sounds Extremity: no leg edema or induration Time spent more than 35 minutes Patient Condition at Discharge: Fair Plan - Discharge Summary New Discharge Prescriptions: New Nitroglycerin Sl Tabs [Nitrostat] 0.4 mg SUBLINGUAL Q5M PRN #10 tab PRN Reason: Chest Pain Clopidogrel [Plavix] 75 mg PO DAILY #30 tab Aspirin 81 mg PO DAILY #30 tab Metoprolol Tartrate [Lopressor] 12.5 mg PO BID #60 tab Acetaminophen Tab [Tylenol] 650 mg PO Q4HR PRN tab PRN Reason: Pain Discharge Medication List Acetaminophen Tab [Tylenol] 650 mg PO Q4HR PRN tab 09/26/21 [Rx] Aspirin 81 mg PO DAILY #30 tab 09/26/21 [Rx] Clopidogrel [Plavix] 75 mg PO DAILY #30 tab 09/26/21 [Rx] Metoprolol Tartrate [Lopressor] 12.5 mg PO BID #60 tab 09/26/21 [Rx] Nitroglycerin Sl Tabs [Nitrostat] 0.4 mg SUBLINGUAL Q5M PRN #10 tab 09/26/21 [Rx] Follow up Appointment(s)/Referral(s): Eladio Velazquez MD [STAFF PHYSICIAN] - 2 Weeks (The office will call you with appointment time and date. ) None,Stated [Primary Care Provider] - 1-2 days Patient Instructions/Handouts: Chest Pain (DC), Medical Clearance for Substance Abuse Treatment (DC), Narcotic Withdrawal (DC) Activity/Diet/Wound Care/Special Instructions: [facility] - [phone] - call at discharge and they will come and pick patient up Heart healthy diet Activity as tolerated. Discharge Disposition: DC/TRNS TO INPATIENT REHAB FAC
== END 2021-09-26 15:14 ==
LOC: EC 17:20 → INTOOBSV 19:37 → 3SCARD 19:37 → UNDODISIN 09-26 15:14
PROVIDERS: ADMIT Internal Medicine; ATTEND Internal Medicine
DX: R07.89 Other chest pain (principal); F41.9 Anxiety disorder, unspecified; Z91.19 Patient's noncompliance with other medical treatment and regimen; F11.13 Opioid abuse with withdrawal; F12.13 Cannabis abuse with withdrawal; F13.139 Sedative, hypnotic or anxiolytic abuse with withdrawal, unspecified; I34.0 Nonrheumatic mitral (valve) insufficiency; R00.2 Palpitations; R77.8 Other specified abnormalities of plasma proteins; R00.1 Bradycardia, unspecified; F32.A Depression, unspecified; I24.9 Acute ischemic heart disease, unspecified; F17.210 Nicotine dependence, cigarettes, uncomplicated; Z71.51 Drug abuse counseling and surveillance of drug abuser; Z71.6 Tobacco abuse counseling; Z79.899 Other long term (current) drug therapy; Z81.3 Family history of other psychoactive substance abuse and dependence; Z82.49 Family history of ischemic heart disease and other diseases of the circulatory system
CPT/HCPCS: 96365; 96366; 96375; 96372; 99285; 36415; 93005; 93306; 85379; 80061; 80053; 80048; 85652; 83735 ×2; 84484 ×2; 85025 ×2; 85610; 85730 ×2; 83721; 80306; 71046; G0378 ×3; S4990 ×2; J2405; J1650; J1644 ×2